=== PATIENT | male | born 1960 | race Caucasian/White ===

== ENCOUNTER 2021-10-16 00:22 | Day surgery (SDC) | payer BC, SELFPAY ==
[2021-10-02 10:10] VITALS: BMI 27.3
--- NOTE | 2021-10-15 09:40 | SUR.PREOP ---
[id number] patient called and instructed to not take his magnesium citrate due to possible contamination. Reviewed prep items and times to take. Patient voiced understanding.
[2021-10-16] MEDS: LACTATED RINGERS 1,000 ML 150 ML IV CONT (06:56)
[2021-10-16 06:57] VITALS: BP 141/91; PULSE 83; RESP 18; TEMP 36.7; O2SAT 97; BMI 26.5
--- NOTE | 2021-10-16 07:27 | PM.HPGS ---
History of Present Illness History of Present Illness Consent: Risks, benefits, and alternatives have been discussed and questions answered. Patient agrees to proceed with procedure. Chief complaint: neoplasm screening Narrative: Siva Veras is a 61 year old male here for first screening colonoscopy Review of Systems Constitutional: Constitutional: Denies headache(s) and Denies weakness Eyes: Eyes: Denies blurry vision ENT: Reports Normal hearing present, Denies headache(s) and Denies neck pain Cardiovascular: Cardiovascular: Denies chest pain and Denies dyspnea Respiratory: Respiratory: Denies dyspnea Gastrointestinal: Gastrointestinal: Reports no additional gastrointestinal complaints Genitourinary: Genitourinary: Denies dysuria Musculoskeletal: Musculoskeletal: Denies neck pain Integumentary/Breasts: Skin/Breast: Denies dry skin Neurologic: Reports Normal hearing present, Denies headache(s) and Denies weakness Psychiatric: Psychiatric: Denies anxiety Endocrine: Endocrine: Denies change in body appearance Hematologic/Lymphatic: Hematologic/Lymphatic: Denies easy bleeding Allergic/Immunologic: Allergic/Immunologic: Denies urticaria PMF Past Medical History Medical History (Updated 10/16/21 @ 07:32 by Mat Klein MD) Colon cancer screening Old myocardial infarction 2015 STEMI 2015 prox lad angioplasty Family History Family History Mother Family history of cardiovascular disease Grandparent Malignant neoplasm of prostate Sibling Family history of type 1 diabetes mellitus Father Family history of type 2 diabetes mellitus Other Family history of hypercholesterolemia Social History Social History Smoking status: Never smoker Alcohol intake: current Alcohol use details: occasional Substance use: never Substance use type: does not use Living arrangements: with family Spiritual care concerns: No Meds Home Medications and Allergies Home Medications Medication Instructions Recorded Confirmed Type aspirin 81 mg tablet,delayed 81 mg PO DAILY 06/15/19 10/16/21 History release carvedilol 6.25 mg tablet 6.25 mg PO Q12H 06/15/19 10/16/21 History cetirizine 10 mg capsule (Zyrtec) 10 mg PO DAILY 06/15/19 10/16/21 History lisinopril 10 mg tablet 10 mg PO DAILY 06/15/19 10/16/21 History rosuvastatin 20 mg tablet (Crestor) 20 mg PO DAILY 06/15/19 10/16/21 History ezetimibe 10 mg tablet 10 mg PO DAILY 08/19/20 10/16/21 History omeprazole 40 mg capsule,delayed See Rx Instructions .Route 07/07/21 10/16/21 Rx release .COMPLEX #90 caps hydrocortisone 1 % topical ointment 1 ea topical DAILY 10/02/21 10/16/21 History mometasone 0.1 % topical solution 1 ml topical BID PRN Skin 10/02/21 10/16/21 History Irritation Allergies Allergy/AdvReac Type Severity Reaction Status Date / Time atorvastatin AdvReac Unknown muscle Verified 10/16/21 06:48 pain. Vital Signs Vital Signs - 24 hr 10/16/21 06:57 Temperature 98.1 F Pulse Rate 83 Respiratory Rate 18 Blood Pressure 141/91 H Pulse Oximetry 97 Oxygen Delivery Room Air Exam Const: General: comfortable and no acute distress HENMT: General nose exam: Normal nares present Eyes: General: appearance normal, both eyes and all related structures Neck: Neck: no JVD Resp: Auscultation: clear to auscultation bilaterally Cardio: Rate: regular rate Rhythm: regular rhythm GI: Inspection: non-distended GI Palp: Yes Soft to palpation Skin: General skin exam: normal color Neuro: General: gait normal Speech: normal speech Extrem: General: normal to inspection Psych: Mental Status: mental status grossly normal Assessment and Plan Assessment and plan (1) Colon cancer screening: Code(s): Z12.11 - Encounter for screening for malignant neoplasm of colon Status:
--- NOTE | 2021-10-16 07:27 | WPDANESEPPF ---
Anes - Initial Pre Proc Eval Procedure: Operation Date: 10/16/21 08:00 Proposed Procedures p Screening Colonoscopy - Mat Klein MD Date/Time: 10/16/21 07:27 Surgeon: Mat Klein MD Pre Op Diagnosis: neoplasm screening Patient Data Age: 61 Gender: M Height: 1.75 m Weight: 81.6 kg Last Vital Signs Temp 36.7 C 10/16/21 06:57 Pulse 83 10/16/21 06:57 Resp 18 10/16/21 06:57 BP 141/91 H 10/16/21 06:57 Pulse Ox 97 10/16/21 06:57 O2 Del Method Room Air 10/16/21 06:57 Allergies Allergy/AdvReac Type Severity Reaction Status Date / Time atorvastatin AdvReac Unknown muscle Verified 10/16/21 06:48 pain. Home Medications Medication Instructions Recorded Confirmed Type aspirin 81 mg tablet,delayed 81 mg PO DAILY 06/15/19 10/16/21 History release carvedilol 6.25 mg tablet 6.25 mg PO Q12H 06/15/19 10/16/21 History cetirizine 10 mg capsule (Zyrtec) 10 mg PO DAILY 06/15/19 10/16/21 History lisinopril 10 mg tablet 10 mg PO DAILY 06/15/19 10/16/21 History rosuvastatin 20 mg tablet (Crestor) 20 mg PO DAILY 06/15/19 10/16/21 History ezetimibe 10 mg tablet 10 mg PO DAILY 08/19/20 10/16/21 History omeprazole 40 mg capsule,delayed See Rx Instructions .Route 07/07/21 10/16/21 Rx release .COMPLEX #90 caps hydrocortisone 1 % topical ointment 1 ea topical DAILY 10/02/21 10/16/21 History mometasone 0.1 % topical solution 1 ml topical BID PRN Skin 10/02/21 10/16/21 History Irritation Patient hx anesthesia problems: none Family hx anesthesia problems: none Results Review: All pre-operative results and documents have been reviewed as part of the pre-operative evaluation. [facility] Past Medical History Medical History Old myocardial infarction 2015 STEMI 2015 prox lad angioplasty Family History Family History Mother Family history of cardiovascular disease Grandparent Malignant neoplasm of prostate Sibling Family history of type 1 diabetes mellitus Father Family history of type 2 diabetes mellitus Other Family history of hypercholesterolemia Social History Social History Smoking status: Never smoker Alcohol intake: current Alcohol use details: occasional Substance use: never Substance use type: does not use Living arrangements: with family Spiritual care concerns: No Anes - Eval Final PreProcedure Day of Procedure 10/16/21 07:27 Patient weight: overweight Heart: regular rate and rhythm Lungs: clear to auscultation and normal air movement Airway: Mallampati scale class II Neurological: alert and oriented Last oral intake: >/= 8 hours ASA classification: III Emergent: no Anesthetic plan: proceed Anesthesia type and monitoring: general GIVS Results Review: All pre-operative results and documents have been reviewed as part of the pre-operative evaluation. Informed Consent: The patient's anesthetic plan and its attendant risks and benefits were discussed with the patient/family/POA. Questions were solicited and answers provided to the satisfaction of the patient/family/POA.
[2021-10-16 07:51] VITALS: BP 104/70; PULSE 74; RESP 18; O2SAT 96
[2021-10-16 08:01] VITALS: BP 109/69; PULSE 68; RESP 18; O2SAT 96
[2021-10-16 08:11] VITALS: BP 121/82; PULSE 80; RESP 18; O2SAT 96
== END 2021-10-16 08:15 | disposition home or self-care (01) ==
PROVIDERS: PCP Family Medicine; Visit Provider Internal Medicine Gastroenterology
PROC: 0DJD8ZZ Inspection of Lower Intestinal Tract, Via Natural or Artificial Opening Endoscopic (ICD-10-PCS; CPT 45378; principal; 2021-10-16 08:00)
DX: Z12.11 Encounter for screening for malignant neoplasm of colon (principal); D12.3 Benign neoplasm of transverse colon; K57.30 Diverticulosis of large intestine without perforation or abscess without bleeding; K64.8 Other hemorrhoids; I25.2 Old myocardial infarction; Z79.82 Long term (current) use of aspirin
CPT/HCPCS: 45385; 88305; J2704; J7120

== ENCOUNTER 2023-10-01 12:41 | Emergency (ER) | payer BC, SELFPAY ==
--- NOTE | ~2023-10-01 | XR_ITS ---
EXAMINATION: XR foot RT min 3V DATE: 10/01/2023 12:54 INDICATION: Right foot injury to the fifth toe TECHNIQUE: Dorsoplantar, two oblique and lateral views of the right foot were obtained. COMPARISON: None. FINDINGS: 1 mm lateral displacement of an oblique intra-articular fracture extending across the lateral side of the head of the fifth proximal phalanx. No other fractures identified. Bone alignment is otherwise n ormal. Mild osteoarthritis at the first metatarsophalangeal joint. IMPRESSION: 1. Minimally displaced intra-articular fracture at the head of the right fifth proximal phalanx. Reviewed, dictated and finalized at location A.
[2023-10-01 12:42] VITALS: BP 148/83; PULSE 81; RESP 16; TEMP 36.6; O2SAT 98
--- NOTE | 2023-10-01 13:29 | ED.GENADULT ---
HPI - General Adult General Chief complaint: Extremity Injury, Lower Stated complaint: kicked a baby gate Time Seen by Provider: 10/01/23 13:05 History of Present Illness HPI narrative: Patient is a 63-year-old male who presents to the ER with pain in the right 5th digit of the foot. He accidentally kicked a baby gate. Reports that was sticking out to the side but is now straightened itself. No numbness or tingling. No additional concerns. Related Data Home Medications Medication Instructions Recorded Confirmed aspirin 81 mg tablet,delayed 81 mg PO DAILY 06/15/19 12/02/22 release carvedilol 6.25 mg tablet 6.25 mg PO Q12H 06/15/19 12/02/22 cetirizine 10 mg capsule (Zyrtec) 10 mg PO DAILY 06/15/19 12/02/22 lisinopril 10 mg tablet 10 mg PO DAILY 06/15/19 12/02/22 rosuvastatin 20 mg tablet (Crestor) 20 mg PO DAILY 06/15/19 12/02/22 ezetimibe 10 mg tablet 10 mg PO DAILY 08/19/20 12/02/22 mometasone 0.1 % topical solution 1 ml topical BID PRN Skin 10/02/21 12/02/22 Irritation tacrolimus 0.1 % topical ointment 1 applic topical BID 11/26/21 12/02/22 colesevelam 625 mg tablet 1,250 mg PO BID 12/02/22 12/02/22 Allergies Allergy/AdvReac Type Severity Reaction Status Date / Time atorvastatin AdvReac Unknown muscle Verified 12/02/22 11:09 pain. Review of Systems Constitutional: Constitutional: Reports no additional constitutional complaints Musculoskeletal: Musculoskeletal: Reports arthralgias, Denies joint swelling and Denies muscle cramps PMFSH Past Medical History Medical History (Updated 10/01/23 @ 13:32 by Antonio Angelo MD) Change in bowel habit much improved on welchol/ gi workup + bile leakage Old myocardial infarction 2015 STEMI 2015 prox lad angioplasty Surgical History Surgical History Hx of colonoscopy with polypectomy 7.29.22/repeat 5 years Family History Family History Mother Family history of cardiovascular disease Grandparent Malignant neoplasm of prostate Sibling Family history of type 1 diabetes mellitus Father Family history of type 2 diabetes mellitus Other Family history of hypercholesterolemia Social History Social History (Updated 12/02/22 @ 11:10 by SUZANNE Momin) Smoking status: Never smoker Alcohol intake: current Alcohol use details: occasional Substance use: never Substance use type: does not use Lack of Transportation: No Lack of Food: Never True Current Housing: I Have Housing Concerned About Future Housing: No Difficulty Paying Gas/Electric Bills: No Difficulty Paying for Meds: No Currently Unemployed: No Education: High School Diploma/GED Difficulty w/ Childcare or Family Care: No Living arrangements: with family Spiritual care concerns: No Exam Narrative: GENERAL: Well-appearing, well-nourished, and in no acute distress. HEAD: Normocephalic, atraumatic. ENT: Mucous membranes moist. EXTREMITIES: Normal range of motion. No edema. No deformity to the right 5th digit. SKIN: Warm, dry, no rash. NEURO: Alert and oriented x3. PSYCH: Normal mood and affect. Course Course Emergency Course: Discussed imaging results. Will place a postop shoe. Discharge. Vital Signs Vital signs: Vital Signs Temperature 98 F 10/01/23 12:42 Pulse Rate 81 10/01/23 12:42 Respiratory Rate 16 10/01/23 12:42 Blood Pressure 148/83 H 10/01/23 12:42 Pulse Oximetry 98 10/01/23 12:42 Temperature 98 F 10/01/23 12:42 Pulse Rate 81 10/01/23 12:42 Respiratory Rate 16 10/01/23 12:42 Blood Pressure 148/83 H 10/01/23 12:42 Pulse Oximetry 98 10/01/23 12:42 Medical Decision Making Vital Signs Vital Signs: Vital Signs Temperature 98 F 10/01/23 12:42 Pulse Rate 81 10/01/23 12:42 Respiratory Rate 16 10/01/23 12:42 Blood Pressure 148/83 H 10/01/23 12:42
[2023-10-01 13:44] VITALS: BP 139/81; PULSE 68; RESP 18; TEMP 37; O2SAT 100
== END 2023-10-01 13:46 | disposition home or self-care (01) ==
PROVIDERS: Emergency Provider Emergency Medicine; PCP Family Medicine
DX: S92.511A Displaced fracture of proximal phalanx of right lesser toe(s), initial encounter for closed fracture (principal); I25.2 Old myocardial infarction; Z86.010 Personal history of colon polyps; Z79.82 Long term (current) use of aspirin; Z79.899 Other long term (current) drug therapy; W22.8XXA Striking against or struck by other objects, initial encounter
CPT/HCPCS: 73630; 99284